=== PATIENT | female | born 1980 | race Two or more races ===

== ENCOUNTER 2022-07-15 07:08 | Emergency (ER) | payer OTHER, MEDICAID, SELFPAY ==
[2022-07-15 07:18] VITALS: BP 121/73; PULSE 76; RESP 17; TEMP 36.5; O2SAT 100; BMI 29.7
[2022-07-15 07:30] VITALS: BP 120/66; PULSE 74; O2SAT 100
--- NOTE | 2022-07-15 07:39 | ED_ITS ---
HPI - Female Genitourinary General: Chief complaint: Urogenital-Female Stated complaint: Endo Pain Time Seen by Provider: 07/15/22 07:09 Source: patient Mode of arrival: ambulatory History of Present Illness: 42-year-old female presents emergency room with complaint of pelvic pain and cramping. She is set up to receive by gynecology. She had an ultrasound done 4 days ago that is reviewed is on her chart here at [facility] shows endocervical polyps as well as endometriosis. She is continuing to have pelvic pain and cramping, seems to be worsening. She denies any abnormal uterine bleeding. She has an appointment to see gynecology but it is not until August. MD elicited complaint: pelvic pain Pertinent past history: other (Endometriosis) Onset (ago): week(s) Severity: moderate Female Urogenital Radiation: Non-Radiating Quality of pain: cramping Consistency: constant Vaginal discharge: none Vaginal bleeding: none Urinary symptoms: Difficulty Urinating, Dysuria and Flank Pain Exacerbating factors: none Relieving factors: none Associated symptoms: Deny abdominal pain, short of breath, fevers/chills, headache(s), nausea, rash, seizures, syncope, vaginal bleeding, vaginal discharge or weakness Treatment prior to arrival: none Patient : No Review of Systems Const: Denies: fever(s), chills, body aches, change in appetite, fatigue or malaise ENMT: Denies: throat pain, ear or mastoid pain, nasal discharge or nasal congestion Card: Denies: chest pain, palpitations, irregular heart rhythm or syncope Resp: Denies: dyspnea, productive cough or non-productive cough GI: Denies: abdominal pain or nausea : Denies: flank pain, difficulty voiding, dysuria, urinary frequency, urinary urgency or vaginal discharge Skin/Breast: Denies: rash or pruritus Neuro: Denies: headache(s) PFSH ED PFSH: Medical History (Updated 07/23/22 @ 00:01 by ) Psychiatric care Surgical History (Updated 07/15/22 @ 07:54 by Judah Ramos DO) Previous section Social History (Updated 07/15/22 @ 07:54 by Judah Ramos DO) Smoking and tobacco status: never smoked Alcohol intake: never Physical Exam Const: GENERAL APPEARANCE: cooperative and comfortable ORIENTATION/CONSCIOUSNESS: Yes awake, Yes oriented to person, Yes oriented to place and Yes oriented to time HENMT: COMMON NORMALS: normocephalic, atraumatic and hearing grossly normal bilaterally HEAD & SCALP: normocephalic and atraumatic Resp: COMMON NORMALS: normal respiratory effort, No retractions, No use of accessory muscles and clear to auscultation bilaterally AUSCULTATION: clear to auscultation bilaterally Cardio: COMMON NORMALS: regular rate, regular rhythm and No murmurs present (Cardio) RATE: regular rate RHYTHM: regular rhythm GI: COMMON NORMALS: Soft to palpation and No hepatosplenomegaly present AUSCULTATION: Yes normoactive bowel sounds PALPATION: Yes Soft to palpation, No Tenderness to palpation present (GI), No Guarding due to palpation present (GI) and Yes No hepatosplenomegaly present : SPECULUM EXAM - VAGINA: No vaginal bleeding OB/EXTERNAL & SPECULUM: No vaginal bleeding Extremity: COMMON NORMALS: normal to inspection, capillary refill normal, no clubbing, cyanosis or edema, no calf tenderness and no pedal edema Neuro: SENSORIUM/ORIENTATION: Yes oriented to person, Yes oriented to place and Yes oriented to time Skin: COMMON NORMALS: no rashes or lesions noted GENERAL SKIN EXAM: no r ashes or lesions noted Course Vital Signs: Vital signs: Vital Signs Temperature 97.7 F 07/15/22 07:18 Pulse Rate 78 07/15/22 09:39 Respiratory Rate 16 07/15/22 09:39 Blood Pressure 122/65 07/15/22 09:39 Pulse Oximetry 98 07/15/22 09:39 Oxygen Delivery Me thod 07/15/22 07:18 MDM - Female Medical Decision Making Labs and imaging reviewed with the patient. Imaging done previously was reviewed. She is feeling somewhat better at this point we will discharge her home set up to see gynecology. Medications given for relief of ongoing symptoms, diclofenac for routine use tramadol for breakthrough pain. She has an appointment that her primary care doctor scheduled with gynecology recommend that she keep that. If has significant worsening follow-up with her primary care doctor. Medical Records I reviewed the patient's medical records. Lab Data I reviewed the patient's lab results. : 07/15/22 07:58 07/15/22 07:58 Laboratory Results WBC 10.0 10^3/uL (4.0-10.0) 07/15/22 07:58 RBC 4.71 10^6/uL (4.1-5.3) 07/15/22 07:58 Hgb 13.7 g/dL (11.5-15.3) 07/15/22 07:58 Hct 42.6 % (37.0-47.0) 07/15/22 07:58 MCV 90.4 fl (81-99) 07/15/22 07:58 MCH 29.1 pg (28.0-34.0) 07/15/22 07:58 MCHC 32.2 g/dL (30.0-36.0) 07/15/22 07:58 RDW 13.1 % (12.1-15.1) 07/15/22 07:58 Plt Count 203 10^3/cmm (130-400) 07/15/22 07:58 MPV 12.8 fL (7.4-10.4) H 07/15/22 07:58 Neut % (Auto) 64.7 % 07/15/22 07:58 Lymph % (Auto) 27.7 % 07/15/22 07:58 [place] % (Auto) 6.4 % 07/15/22 07:58 Eos % (Auto) 0.5 % 07/15/22 07:58 Baso % (Auto) 0.2 % 07/15/22 07:58 Neut # (Auto) 6.46 10^3/uL (1.8-7.7) 07/15/22 07:58 Lymph # (Auto) 2.8 10^3/uL (0.8-4.8) 07/15/22 07:58 [place] # (Auto) 0.6 10^3/uL (0.2-0.9) 07/15/22 07:58 Eos # (Auto) 0.1 10^3/uL (0.0-0.8) 07/15/22 07:58 Baso # (Auto) 0.0 10^3/uL (0.0-0.1) 07/15/22 07:58 Nucleated RBC % (auto) 0 % 07/15/22 07:58 Nucleated RBCs # 0.0 /100WBC 07/15/22 07:58 Sodium 139 mmol/L (136-145) 07/15/22 07:58 Potassium 3.9 mmol/L (3.5-5.1) 07/15/22 07:58 Chloride 104 mmol/L (98-107) 07/15/22 07:58 Carbon Dioxide 24 mmol/L (22-29) 07/15/22 07:58 Anion Gap 14.9 (5-19) 07/15/22 07:58 BUN 9 mg/dL (6-20) 07/15/22 07:58 Creatinine 0.9 mg/dL (0.5-0.9) 07/15/22 07:58 GFR Calculation 68.0 mL/min (90-130) L 07/15/22 07:58 Glucose 86 mg/dL (65-115) 07/15/22 07:58 Calculated Osmolality 286 mOsm/kg (285-295) 07/15/22 07:58 Calcium 9.3 mg/dL (8.5-10.5) 07/15/22 07:58 Total Bilirubin 0.3 mg/dL (0.15-1.2) 07/15/22 07:58 AST 10 U/L (0-32) 07/15/22 07:58 ALT 10 U/L (0-33) 07/15/22 07:58 Alkaline Phosphatase 77 U/L (35-105) 07/15/22 07:58 Total Protein 6.9 g/dL (6.6-8.7) 07/15/22 07:58 Albumin 4.3 g/dL (3.5-5.2) 07/15/22 07:58 Globulin 2.6 g/dL (1.3-4.6) 07/15/22 07:58 Discharge Plan Discharge Patient Disposition: Home Clinical Impression: Endometriosis, Cervical polyp Condition: Stable Prescriptions: New diclofenac sodium 75 mg tablet,delayed release (DR/EC) 75 mg PO Q12H PRN (Reason: pain) Qty: 60 0RF tramadol 50 mg tablet 50 mg PO Q6H PRN (Reason: pain) Qty: 14 0RF Discharge Orders: Discharge ED (Routine); Ordered 07/15/22 Ordered By: Judah Ramos Referrals: Patrick Epperson MD [Primary Care Provider] - Discharge Diet: Usual diet Discharge Activity: Increase activity as tolerated Patient Instructions: Opioid Safety, Pain Management Activity Restrictions/Additional Instructions: Use medications as above for relief of cramping discomfort in the pelvis. Use diclofenac initially if that is not adequate use the tramadol. Keep the a ppointment that Dr. Strickland is scheduled for you with gynecology. If there is significant worsening of symptoms follow-up with your primary care doctor. Coding Level of Care Code ED Sample Hand for Gabrielle Fwd Exam Comprehensive
[2022-07-15 08:00] VITALS: BP 128/69; PULSE 67; O2SAT 98
[2022-07-15] MEDS: ketorolac 30 mg/mL INJ IVP (08:06)
[2022-07-15 08:10] VITALS: RESP 16; O2SAT 98
[2022-07-15] MEDS: morphine 4 mg/mL SDV 1 mL IVP (08:10)
[2022-07-15 08:30] VITALS: BP 124/77; PULSE 78; RESP 16; O2SAT 97
[2022-07-15 08:59] LABS: Basophils % 0.2 %; Eosinophils # 0.1 10^3/uL (0.0-0.8); Eosinophils % 0.5 %; Hematocrit 42.6 % (37.0-47.0); Hemoglobin 13.7 g/dL (11.5-15.3); Lymphocytes # 2.8 10^3/uL (0.8-4.8); Lymphocytes % 27.7 %; Mean Corpuscular HGB Conc 32.2 g/dL (30.0-36.0); Mean Corpuscular Hemoglobin 29.1 pg (28.0-34.0); Mean Corpuscular Volume 90.4 fl (81-99); Mean Platelet Volume 12.8 fL (7.4-10.4); Monocytes # 0.6 10^3/uL (0.2-0.9); Monocytes % 6.4 %; Neutrophils # 6.46 10^3/uL (1.8-7.7); Neutrophils % 64.7 %; Nucleated Red Blood Cells % 0 %; Platelet Count 203 10^3/cmm (130-400); Red Blood Count 4.71 10^6/uL (4.1-5.3); Red Cell Distribution Width 13.1 % (12.1-15.1)
[2022-07-15 09:12] LABS: Alanine Aminotransferase 10 U/L (0-33); Albumin Level 4.3 g/dL (3.5-5.2); Alkaline Phosphatase 77 U/L (35-105); Anion Gap 14.9 (5-19); Aspartate Amino Transferase 10 U/L (0-32); Blood Urea Nitrogen 9 mg/dL (6-20); Calcium 9.3 mg/dL (8.5-10.5); Carbon Dioxide 24 mmol/L (22-29); Chloride 104 mmol/L (98-107); Globulin 2.6 g/dL (1.3-4.6); Glucose 86 mg/dL (65-115); Osmolality Calculated 286 mOsm/kg (285-295); Potassium 3.9 mmol/L (3.5-5.1); Sodium 139 mmol/L (136-145); Total Bilirubin 0.3 mg/dL (0.15-1.2); Total Protein 6.9 g/dL (6.6-8.7)
[2022-07-15 09:39] VITALS: BP 122/65; PULSE 78; RESP 16; O2SAT 98
== END 2022-07-15 09:40 | disposition home or self-care (01) ==
PROVIDERS: Emergency Provider Family Medicine; PCP Family Medicine
DX: N80.9 Endometriosis, unspecified (principal); N84.1 Polyp of cervix uteri
CPT/HCPCS: 80053; 85025; 96374; 96375; 99284; J1885; J2270

== ENCOUNTER → 2022-11-07 10:40 | Outpatient (BNVA) | payer OTHER, MEDICAID, SELFPAY | PROVIDERS: PCP Family Medicine; Visit Provider Obstetrics & Gynecology | DX: Z01.818 Encounter for other preprocedural examination (principal) | CPT/HCPCS: 81025 ==

== ENCOUNTER 2022-11-15 14:53 | Inpatient (IN) | payer OTHER, MEDICAID, SELFPAY ==
[2022-11-14 09:46] VITALS: BMI 29.1
[2022-11-14 09:59] LABS: Add Urine Microscopic? NO; Charge for UA Resulting for Rev
[2022-11-14 10:02] LABS: Blood Urine Neg (Negative); Glucose Urine UA Norm (Normal); Ketones Urine Negative (Negative); Protein Urine Neg (Negative); Urine Appearance Clear (CLEAR); Urine Color Yellow (Yellow); pH Urine 7 (5-7)
[2022-11-14 10:03] LABS: Bilirubin Urine Neg (Negative); Leukocyte Esterase Urine Negative (Negative); Nitrate Urine Negative (Negative); Urobilinogen Urine Norm (Negative)
[2022-11-14 10:05] LABS: OR HCG Qualitative Urine Negative (Negative)
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
[2022-11-14 10:12] LABS: Basophils % 0.2 %; Eosinophils % 0.1 %; Hematocrit 42.7 % (37.0-47.0); Hemoglobin 13.4 g/dL (11.5-15.3); Lymphocytes # 3.5 10^3/uL (0.8-4.8); Lymphocytes % 21.1 %; Mean Corpuscular HGB Conc 31.4 g/dL (30.0-36.0); Mean Corpuscular Hemoglobin 28.6 pg (28.0-34.0); Mean Platelet Volume 12.2 fL (7.4-10.4); Monocytes # 0.9 10^3/uL (0.2-0.9); Monocytes % 5.3 %; Neutrophils # 12.02 10^3/uL (1.8-7.7); Nucleated Red Blood Cells % 0 %; Platelet Count 216 10^3/cmm (130-400); Red Blood Count 4.69 10^6/uL (4.1-5.3); Red Cell Distribution Width 13.9 % (12.1-15.1); White Blood Count 16.5 10^3/uL (4.0-10.0)
[2022-11-15] VITALS (21 sets, daily range): BP systolic 108–161; BP diastolic 66–99; PULSE 66–96; RESP 12–20; TEMP 36.4–36.9; O2SAT 96–100
[2022-11-15] MEDS: sodium chloride 0.9% 500 ML IV (09:50)
[2022-11-15] MEDS: scopolamine 1.5 Patch 1 PATCH TRANSDERMA (09:52)
[2022-11-15 10:26] LABS: Alanine Aminotransferase 10 U/L (0-33); Alkaline Phosphatase 65 U/L (35-105); Anion Gap 14.9 (5-19); Aspartate Amino Transferase 12 U/L (0-32); Blood Urea Nitrogen 10 mg/dL (6-20); Carbon Dioxide 21 mmol/L (22-29); Chloride 101 mmol/L (98-107); Globulin 2.9 g/dL (1.3-4.6); Glomerular Filtration Rate 77.9 mL/min (90-130); Glucose 79 mg/dL (65-115); Osmolality Calculated 274 mOsm/kg (285-295); Potassium 3.9 mmol/L (3.5-5.1); Sodium 133 mmol/L (136-145); Total Bilirubin 0.3 mg/dL (0.15-1.2); Total Protein 6.9 g/dL (6.6-8.7)
[2022-11-15] MEDS: sodium chloride 0.9% 1,000 ML 30 ML IV (10:55)
--- NOTE | 2022-11-15 11:00 | W.PM.OPSUD ---
Surgery/Procedure H&P Update DATE OF PROCEDURE: November 15, 2022 DATE H&P PERFORMED: 11/13/22 H&P UPDATE INFORMATION: I have reviewed H&P completed within last 30 days, I have examined patient prior to procedure and No changes to prior documentation PREOP DIAGNOSIS: Endometriosis, pelvic pain, endometrial polyp PLANNED PROCEDURE: Operation Date: 11/15/22 11:05 Proposed Procedures p Total abdominal hysterectomy, bilateral salpingecto-oophorectomy 89577,N80.9,R10.2,N84.0(Not Applicable) - Chandrakant Jacob MD s Salpingo Oophorectomy (Open)(Bilateral) - Chandrakant Jacob MD
--- NOTE | 2022-11-15 11:07 | P.ANESUD_ITS ---
Pre-Anesthetic Update Pre-Anesthetic Assessment: Date of Surgery/Procedure: 11/15/22 Preop Nemo gnosis: Endometriosis, pelvic pain, endometrial polyp Proposed Procedure: Operation Date: 11/15/22 11:05 Proposed Procedures p Total abdominal hysterectomy, bilateral salpingecto-oophorectomy 77351,N80.9,R10.2,N84.0(Not Applicable) - Chandrakant Jacob MD s Salpingo Oophorectomy (Open)(Bilateral) - Chandrakant Jacob MD Any changes to Pre-Anesthetic Assessment?: No Last Intake: Intake Last Liquid Date 11/14/22 Last Liquid Time 22:00 Last Solid Date 11/14/22 Last Solid Time 22:00 Labs Last 48hrs: Short CBC 11/14/22 Range/Units 09:59 WBC 16.5 H (4.0-10.0) 10^3/ uL Hgb 13.4 (11.5-15.3) g/dL Hct 42.7 (37.0-47.0) % MCV 91.0 (81-99) fl Plt Count 216 (130-400) 10^3/c mm Neut % (Auto) 73.0 % Neut # (Auto) 12.02 H (1.8-7.7) 10^3/u L BMP 11/14/22 11/15/22 09:59 09:45 Sodium Cancelled 133 L Potassium Cancelled 3.9 Chloride Cancelled 101 Carbon Dioxide Cancelled 21 L BUN Cancelled 10 Creatinine Cancelled 0.8 Glucose Cancelled 79 Calcium Cancelled 9.0 Liver Function 11/14/22 11/15/22 Range/Units 09:59 09:45 Total Bilirubin Cancelled 0.3 AST Cancelled 12 ALT Cancelled 10 Alkaline Phosphata se Cancelled 65 Albumin Cancelled 4.0 Urine 11/14/22 Range/Units 09:40 Urine Color Yellow (Yellow) Urine Appearance Clear (CLEAR) Urine pH 7 (5-7) Ur Specific [place]it y 1.010 (1.005-1.030) Urine Protein Neg (Negative) Urine Glucose (UA) Norm (Normal) Urine Ketones Negative (Negative) Urine Nitrate Negative (Negative) Urine Bilirubin Neg (Negative) Ur Leukocyte [place] Negative (Negative) Blood Bank 11/14/22 09:59 Blood Type O Positive Rho(D) Type Positive Antibody Screen Negative Vitals: Temperature 98.5 F 02/22/23 09:26 Temperature Source Temporal Artery S can 11/15/22 09:26 Pulse Rate 74 11/15/22 09:26 Pulse Rhythm 11/15/22 09:26 Pulse Strength 3+ Normal 11/15/22 09:26 Respiratory Rate 18 11/15/22 09:26 Blood Pressure 124/99 11/15/22 09:26 Blood Pressure Jodie n 107 11/15/22 09:26 Pulse Oximetry 100 11/15/22 09:26 Oxygen Delivery Me thod 11/15/22 09:26 Exam: Pre-Anes Outpt Exam: alert, oriented x 3, clear to auscultation bilaterally and regular rate & rhythm Cardiac Studies: No Data to Display
[2022-11-15] MEDS: ceFOXitin 2,000 MG in sodium chloride 0.9% (plus) 50 ML 100 MG IV (12:06)
--- NOTE | 2022-11-15 13:48 | P.OP_ITS ---
Operative Report Date of procedure: November 15, 2022 Pre-op diagnosis: Preop Diagnosis Endometriosis, pelvic pain, endometrial polyp Post-op diagnosis: Same as above Procedure done: Total abdominal hysterectomy Specimens removed/disposition: Uterus Left and right fallopian tube and ovaries Surgeon: Chandrakant Jacob MD Estimated blood loss (mL): 250 IV fluids (mL): 1,800 Urine output (mL): 300 Findings: None Procedure: The patient was taken to the operating room, and after adequate level of general anesthesia was achieved, the patient was placed in the Trendelenburg position, prepped and draped in the usual sterile fashion. Subsequently, a Pfannenstiel incision was made and the incision was taken down to the fascia. The fascia was opened up sharply. The fascia was extended to the length of the incision using devorah Ford scissors. At this time, the rectus muscles were dissected from the fascia superiorly and inferiorly to the symphysis pubis. The midline rectus muscles were opened sharply and extended superiorly and inferiorly. The peritoneum was visualized, grasped, opened sharply, and extended superiorly and inferiorly towards the bladder. The abdominal contents were packed superiorly away from the operative site using the lap packs. At this time, the pelvic organs were noted. The inferior and superior blades were placed in place on the Babak self-retaining retractor. Bowel was packed away from the operative site. The fundus of the uterus was then grasped with a triple-tooth tenaculum and retracted out of the pelvic cavity into the abdominal site. At this point, Mireya clamps were placed in both right and left adnexal regions. Subsequently, using the Enseal cautery unit, the round ligaments were grasped, cauterized, and dissected. The bladder flap was then formed and the bladder flap was pushed away down anteriorly over the lower uterine segment, pushed away from the operative site on both the right and left sides. Subsequently, the posterior leaf of the broad ligament was opened sharply and the Enseal instrument was then placed below the level of the ovary in both the right and left side, care being taken not to damage bowel or uterus and the infundibulopelvic ligament was then grasp ed, cauterized, and again dissected. Further dissection of the broad ligament was carried down posteriorly towards the uterine vessels. The bladder was pushed inferiorly down towards the vagina. Subsequently, the uterine vessels were then grasped again with the Enseal device, cauterized, and dissected. The cardinal ligaments were further grasped, dissected, and suture ligated, again with the Enseal machine. At that point, the Enseal machine instrument was stopped and straight Zeppelin clamps were used on the cardinal ligaments down towards the uterosacral ligaments. The cardinal ligaments were grasped, dissected with a scalpel and then ligated with transfixion sutures with #1 Vicryl suture down to the uterosacral ligaments. The uterosacral ligaments were grasped, dissected, and suture ligated again with #1 Vicryl suture and transfixion sutures. At that time, the bladder had been pushed over the vagina and at this time right-angle Zeppelin clamps were placed on the vagina at the level of the cervix, and using the Jenaro scissors, the cervix was dissected away from the vagina. Then the uterus with left and right fallopian tube and ovaries were sent to pathology. At this time, the vaginal cuff was then closed using interrupted sutures of #1 Vicryl suture from the midline to each lateral corner. After the good hemostasis had been achieved in the vaginal cuff, both the right and left adnexa was visualized and no more bleeding was noted. The cuff was intact with no bleeding noted. The bladder was visualized and no bleeding was noted. Seprafilm was then placed over the vaginal cuff. The Babak self-retaining retractor was removed as well as the anterior and inferior blades. The lap packs were removed, and at this time, general closure of the abdomen was carried out. The peritoneum was closed with a 2-0 Vicryl suture and continuous running suture. The fascia was closed using a #1 Vicryl suture from each corner to the midline. Subcutaneous tissue was cauterized. No bleeding was noted. The subcutaneous tissue was then reapproximated using plain sutures and interrupted sutures, and the skin was closed using Insorb absorbable subcuticular andressa. Exparel was infiltrated in the incision site for pain management. The patient tolerated the procedure well and was transferred to the recovery room in excellent condition. The patient returned to the floor for recovery.
[2022-11-15] MEDS: fentaNYL 50 mcg/mL INJ 2mL IVP ×2 (13:52→15:23)
[2022-11-15] MEDS: HYDROmorphone 1 mg/mL INJ 1 mL 0.5 MG IVP (14:03)
[2022-11-15] MEDS: ondansetron 2 mg/ML SDV 2 mL 4 MG IVP ×2 (14:08→22:37)
[2022-11-15] MEDS: HYDROcodone-acetaminophen 5-325 mg Tablet PO ×2 (15:00→20:45)
[2022-11-15] MEDS: dextrose 5%-lactated ringers 1,000 ML 125 ML IV ×2 (15:02→22:49)
[2022-11-15] MEDS: acetaminophen 1,000 MG/100 ML PIGGYBACK 400 MG IV (15:30)
[2022-11-15] MEDS: docusate sodium 100 mg Capsule PO (17:12)
[2022-11-15] MEDS: ketorolac 30 mg/mL INJ IVP ×2 (17:12→22:38)
[2022-11-15] MEDS: simethicone 80 mg Chew PO (20:45)
[2022-11-16] MEDS: HYDROcodone-acetaminophen 5-325 mg Tablet PO ×3 (02:49→21:34)
[2022-11-16] MEDS: simethicone 80 mg Chew PO ×3 (05:22→20:50)
[2022-11-16] MEDS: ketorolac 30 mg/mL INJ IVP (05:22)
[2022-11-16 05:30] VITALS: BP 132/79; PULSE 89; RESP 18; TEMP 36.8; O2SAT 97
[2022-11-16 06:09] LABS: Hematocrit 36.6 % (37.0-47.0); Hemoglobin 11.6 g/dL (11.5-15.3); Mean Corpuscular HGB Conc 31.7 g/dL (30.0-36.0); Mean Corpuscular Hemoglobin 28.4 pg (28.0-34.0); Mean Corpuscular Volume 89.7 fl (81-99); Mean Platelet Volume 12.1 fL (7.4-10.4); Platelet Count 179 10^3/cmm (130-400); Red Blood Count 4.08 10^6/uL (4.1-5.3); Red Cell Distribution Width 13.7 % (12.1-15.1); White Blood Count 17.5 10^3/uL (4.0-10.0)
--- NOTE | 2022-11-16 08:28 | P.PN_ITS ---
Subjective Subjective: Mrs. Chinchilla 42-year-old female is status post total abdominal hysterectomy postoperative day 1. Refers feeling good Vitals/I&O/Wt Last Vital Signs Temp 98.2 F 11/16/22 05:30 Pulse 89 11/16/22 05:30 Resp 18 11/16/22 05:30 BP 132/79 11/16/22 05:30 Pulse Ox 97 11/16/22 05:30 O2 Del Method 11/16/22 05:30 O2 Flow Rate 6 11/15/22 13:46 11/15/22 11/16/22 11/16/22 22:59 06:59 14:59 Intake Total 1072.917 / 2432.917 816.667 / 3249.584 Output Total 700 / 1550 1650 / 3200 200 / 200 Balance 372.917 / 882.917 -833.333 / 49.584 -200 / -200 Weight last 48 hrs Weight 84.368 kg Physical Exam Narrative: GA: Alert and oriented ?3. HEENT: WNL. Heart: Regular rate and rhythm. Lungs: Clear to auscultation bilaterally. Abdomen: Bowel sounds present, nontender, minimal tenderness, incision clean and dry, no redness, pain or edema. 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 Extremities: No edema, no cyanosis, no calves pain. Urinary Catheter Management: [place]: Cath Placed During This Visit: yes, but has since been removed by the nurse Reason for Continuing Indwelling Catheter: Decision to DC Catheter Urinary Catheter Date of Insertion: 11/15/22 Urinary Catheter Time of Insertion: 12:15 Date Urinary Catheter Removed: 11/16/22 Time Urinary Catheter Discontinued: 05:30 Data 11/16/22 05:51 11/15/22 09:45 A&P Assessment and plan (1) Status post abdominal hysterectomy and salpingo-oophorectomy: Mrs. Chinchilla 42-year-old female is status post total abdominal hysterectomy postoperative day 1. She is afebrile and hemodynamically stable. Pain well under control. Overnight observation uneventful. Tolerating diet well. Ambulating without difficulty. Passing flatus. Plan Continue postop observation Attestations Medical Necessity Statement*: In my professional opinion per admitting diagnosis Coding Level of Care Code Acute Code for Chg Fwd Diagnoses Status post abdominal hysterectomy and salpingo-oophorectomy
[2022-11-16] MEDS: docusate sodium 100 mg Capsule PO ×2 (09:25→18:30)
[2022-11-16 09:37] VITALS: BP 132/86; PULSE 91; RESP 16; TEMP 36.8; O2SAT 97
[2022-11-16] MEDS: ibuprofen 800 mg tablet PO (14:20)
[2022-11-16 18:30] VITALS: BP 146/83; PULSE 94; RESP 16; TEMP 37.2; O2SAT 98
[2022-11-16 21:34] VITALS: BP 154/82; PULSE 89; RESP 16; TEMP 36.8; O2SAT 97
[2022-11-17] MEDS: ibuprofen 800 mg tablet PO ×2 (00:13→06:26)
[2022-11-17 05:30] VITALS: BP 136/84; PULSE 89; RESP 18; TEMP 37; O2SAT 96
[2022-11-17] MEDS: simethicone 80 mg Chew PO (06:51)
--- NOTE | 2022-11-17 07:44 | PM.OBGYDC ---
Discharge Providers SCANNER SUPERVISOR Date of Admission: 11/15/22 14:53 Date of Discharge: 11/17/22 Attending Provider at Admission: Chandrakant Jacob MD Attending Provider at Discharge: Chandrakant Jacob MD Primary Care Provider: Patrick Epperson MD Diagnoses at Discharge Discharge Diagnosis (1) Status post abdominal hysterectomy and salpingo-oophorectomy: Status: Acute Reason for Visit Reason for Visit: endometriosis, unspecified Hospital Course Hospital Course Mrs. Chinchilla 42-year-old female admitted for planned post total abdominal hysterectomy with bilateral salpingo-oophorectomy. The procedures were performed without complication. She is afebrile and hemodynamically stable postoperative day 2. Tolerating diet well. Ambulating without difficulty. Pain well controlled. Spotting bleeding, she refers hardly any. Postop observation has been uneventful. She was counseled regarding pelvic rest for 6 weeks (no sex, no tampons, no vaginal douches). Return to the emergency room if any fever, increased bleeding or pain. Physical Exam Narrative: GA: Alert and oriented ?3. HEENT: WNL. Heart: Regular rate and rhythm. Lungs: Clear to auscultation bilaterally. Abdomen: Bowel sounds present, nontender, minimal tenderness, incision clean and dry, no redness, pain or edema. AUTOMATIC PATTERN EDGER: No bleeding. Extremities: No edema, no cyanosis, no calves pain. Urinary Catheter Management: [place]: Cath Placed During This Visit: yes, but has since been removed by the nurse Reason for Continuing Indwelling Catheter: Decision to DC Catheter Urinary Catheter Date of Insertion: 11/15/22 Urinary Catheter Time of Insertion: 12:15 Date Urinary Catheter Removed: 11/16/22 Time Urinary Catheter Discontinued: 05:30 History History History 3 Term 3 0 Miscarriages/Ectopic 0 Living Children 4 Discharge Data Studies Completed and Pending Pending at discharge Category Date Time Status Pathology: Surgical [PTH] Routine Pth 11/15/22 13:24 Received Laboratory Results WBC 17.5 10^3/uL (4.0-10.0) H 11/16/22 05:51 RBC 4.08 10^6/uL (4.1-5.3) L 11/16/22 05:51 Hgb 11.6 g/dL (11.5-15.3) 11/16/22 05:51 Hct 36.6 % (37.0-47.0) L 11/16/22 05:51 MCV 89.7 fl (81-99) 11/16/22 05:51 MCH 28.4 pg (28.0-34.0) 11/16/22 05:51 MCHC 31.7 g/dL (30.0-36.0) 11/16/22 05:51 RDW 13.7 % (12.1-15.1) 11/16/22 05:51 Plt Count 179 10^3/cmm (130-400) 11/16/22 05:51 MPV 12.1 fL (7.4-10.4) H 11/16/22 05:51 Neut % (Auto) 73.0 % 11/14/22 09:59 Lymph % (Auto) 21.1 % 11/14/22 09:59 [place] % (Auto) 5.3 % 11/14/22 09:59 Eos % (Auto) 0.1 % 11/14/22 09:59 Baso % (Auto) 0.2 % 11/14/22 09:59 Neut # (Auto) 12.02 10^3/uL (1.8-7.7) H 11/14/22 09:59 Lymph # (Auto) 3.5 10^3/uL (0.8-4.8) 11/14/22 09:59 [place] # (Auto) 0.9 10^3/uL (0.2-0.9) 11/14/22 09:59 Eos # (Auto) 0.0 10^3/uL (0.0-0.8) 11/14/22 09:59 Baso # (Auto) 0.0 10^3/uL (0.0-0.1) 11/14/22 09:59 Nucleated RBC % (auto) 0 % 11/14/22 09:59 Nucleated RBCs # 0.0 /100WBC 11/14/22 09:59 Sodium 133 mmol/L (136-145) L 11/15/22 09:45 Potassium 3.9 mmol/L (3.5-5.1) 11/15/22 09:45 Chloride 101 mmol/L (98-107) 11/15/22 09:45 Carbon Dioxide 21 mmol/L (22-29) L 11/15/22 09:45 Anion Gap 14.9 (5-19) 11/15/22 09:45 BUN 10 mg/dL (6-20) 11/15/22 09:45 Creatinine 0.8 mg/dL (0.5-0.9) 11/15/22 09:45 GFR Calculation 77.9 mL/min (90-130) L 11/15/22 09:45 Glucose 79 mg/dL (65-115) 11/15/22 09:45 Calculated Osmolality 274 mOsm/kg (285-295) L 11/15/22 09:45 Calcium 9.0 mg/dL (8.5-10.5) 11/15/22 09:45 Total Bilirubin 0.3 mg/dL (0.15-1.2) 11/15/22 09:45 AST 12 U/L (0-32) 11/15/22 09:45 ALT 10 U/L (0-33) 11/15/22 09:45 Alkaline Phosphatase 65 U/L (35-105) 11/15/22 09:45 Total Protein 6.9 g/dL (6.6-8.7) 11/15/22 09:45 Albumin 4.0 g/dL (3.5-5.2) 11/15/22 09:45 Globulin 2.9 g/dL (1.3-4.6) 11/15/22 09:45 Urine Color Yellow (Yellow) 11/14/22 09:40 Urine Appearance Clear (CLEAR) 11/14/22 09:40 Urine pH 7 (5-7) 11/14/22 09:40 Ur Specific [place] 1.010 (1.005-1.030) 11/14/22 09:40 Urine Protein Neg (Negative) 11/14/22 09:40 Urine Glucose (UA) Norm (Normal) 11/14/22 09:40 Urine Ketones Negative (Negative) 11/14/22 09:40 Urine Blood Neg (Negative) 11/14/22 09:40 Urine Nitrate Negative (Negative) 11/14/22 09:40 Urine Bilirubin Neg (Negative) 11/14/22 09:40 Urine Urobilinogen Norm mg/dL (Negative) 11/14/22 09:40 Ur Leukocyte Esterase Negative (Negative) 11/14/22 09:40 Urine HCG, Qual Negative (Negative) 11/14/22 09:40 Blood Type O Positive 11/14/22 09:59 Rho(D) Type Positive 11/14/22 09:59 Antibody Screen Negative 11/14/22 09:59 Vitals Last Vital Signs Temp 98.6 F 11/17/22 05:30 Pulse 89 11/17/22 05:30 Resp 18 11/17/22 05:30 BP 136/84 11/17/22 05:30 Pulse Ox 96 11/17/22 05:30 O2 Del Method 11/17/22 05:30 O2 Flow Rate 6 11/15/22 13:46 Discharge Plan Discharge Patient Disposition: Home Condition: Stable Prescriptions: New hydrocodone-acetaminophen 5-325 mg tablet 1 tab PO Q4H PRN (Reason: pain) Qty: 30 0RF acetaminophen 325 mg capsule 325 mg PO Q4H PRN (Reason: fever or pain) Qty: 60 0RF docusate sodium [Colace] 100 mg capsule 100 mg PO BID Qty: 60 0RF ibuprofen 800 mg tablet 800 mg PO TID PRN (Reason: pain) Qty: 60 0RF Continued ibuprofen 600 mg Tablet 600 mg PO Q8H PRN (Reason: Pain (Scale Score 4-6)) Discharge Orders: Discharge Order (Routine); Ordered 11/17/22 Ordered By: Chandrakant Jacob Referrals: Chandrakant Jacob MD [Physician] - 11/29/22 10:00 am (2 week post-op: 11/29/22 @10:00 6 week post-op: 12/26/22 @11:00) Discharge Diet: Usual diet Discharge Activity: Limit activity as instructed Patient Instructions: Hydrocodone/Acetaminophen (By mouth) (Vicodin, [place], Lortab), Salpingo-Oophorectomy (DC), Hysterectomy (DC), OB Abdominal Surgery - [facility], OB Discharge Report, OB Food/Drug Interaction Guide, Opioid Safety, Hysterectomy (GEN), Salpingo-Oophorectomy (GEN) Activity Restrictions/Additional Instructions: 1. Please call [facility] on next working day to make your post-operative appointment in 2 weeks. 2. Please stay home until you come back to the clinic on first post-operative check up. 3. Please follow instructions on your medications CAREFULLY. 4. If you have abdominal incision, do not cover it unless dressing is necessary because of drainage. OK to shower, but avoid bath. Leave steri-strips until they fall off. If they are still on one week after surgery, you may remove them. 5. If you had vaginal surgery or vaginal repair, Dr. Jacob may instruct you to take SITZ bath. 6. Yellow, blood tinged odorous vaginal discharge is usually normal after hysterectomy or vaginal surgeries. 7. No sexual intercourse, tampons, or douches until you are completely released from the post-operative care. 8. Avoid constipation by eating right and maybe using some Metamucil or Milk of Magnesia. 9. All prescription refills are given during the working hours. Please do no wait till it runs out. Call the clinic at [phone] before your medication runs out. The clinic will get in touch with your doctor to prescribe medications if necessary. 10. Please remain within 40 mile radius from our hospital because emergencies do happen now and then during the post-operative period. 11. If you have stairs at home, take one step at a time slowly and minimize the number of trips. It helps to stay in one floor for the next few days. No lifting except what you can lift by one hand until you are released from the post-operative care. 12. Driving is discouraged until you are well healed. It may be 3-4 weeks before you feel strong enough to drive. You should be able to turn and look through the rear window without pain and you should be able to push the brake pedal very hard without pain before you drive. No fast rules, but SAFETY should be your primary concern. DO NOT drive if you are on sedating medications such as narcotics. 13. Call the clinic (during working hours) to make urgent appointment or go to the Emergency room, if any of the following occurs: i. Vaginal bleeding becomes heavy, more than a period. ii. Incision becomes red and sore, or drains pus. iii. Your temperature is over 100.4 or you have chill. iv. IV site becomes red and swollen (a little ``knot?? is usually OK) v. Persistent nausea and vomiting vi. Persistent constipation or diarrhea vii. Rash or allergic reaction to medications. Discharge Attestations SCANNER SUPERVISOR Time Spent in Discharge Care*: greater than 30 min Coding Level of Care Code Acute Code for Chg Fwd Diagnoses Status post abdominal hysterectomy and salpingo-oophorectomy
[2022-11-17 08:00] VITALS: BP 149/80; PULSE 80; RESP 17; TEMP 36.9
== END 2022-11-17 08:20 | disposition home or self-care (01) | DRG 743 ==
LOC: OR 14:53 → OBGYN 11-16 07:16
PROVIDERS: Admitting Provider Obstetrics & Gynecology; PCP Family Medicine; Visit Provider Obstetrics & Gynecology
PROC: 0UT90ZZ Resection of Uterus, Open Approach (ICD-10-PCS; CPT 58150; principal; 2022-11-15 10:55)
PROC: 0UT90ZZ Resection of Uterus, Open Approach (ICD-10-PCS; CPT 58720; 2022-11-15 10:55)
DX: N80.9 Endometriosis, unspecified (principal); N92.1 Excessive and frequent menstruation with irregular cycle; F32.A Depression, unspecified; F17.210 Nicotine dependence, cigarettes, uncomplicated; N84.0 Polyp of corpus uteri; G89.29 Other chronic pain
CPT/HCPCS: 36415; 51702; 80053; 81003; 84703; 85025; 85027; 86850; 86900; 88307; 96374; 96376; C9290; J0131; J0694; J1100; J1170; J1885; J2250; J2405; J2704; J2710; J3010; J3490; J7030; J7040; J7121

== ENCOUNTER 2023-04-29 12:47 | Emergency (ER) | payer OTHER, MEDICAID, SELFPAY ==
[2023-04-29 12:53] VITALS: BP 93/53; PULSE 108; RESP 16; TEMP 36.4; O2SAT 100; BMI 29.0
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
[2023-04-29] MEDS: diphenhydrAMINE 50 mg/mL SDV 1mL IVP (13:04)
[2023-04-29] MEDS: famotidine 20 mg/2 mL INJ 40 MG IVP (13:05)
[2023-04-29] MEDS: EPINEPHrine 1 mg/mL INJ 0.3 MG IM (13:06)
[2023-04-29] MEDS: methylPREDNISolone sod succ 125 MG in water for injection-sterile 2 ML 24 MG IVP (13:08)
[2023-04-29] MEDS: sodium chloride 0.9% 1,000 ML 999 ML IV (13:09)
[2023-04-29 13:14] VITALS: BP 110/67; PULSE 71; RESP 16; O2SAT 97
== END 2023-04-29 15:40 | disposition home or self-care (01) ==
PROVIDERS: Emergency Provider Emergency Medicine; PCP Family Medicine
DX: T63.441A Toxic effect of venom of bees, accidental (unintentional), initial encounter (principal); T78.2XXA Anaphylactic shock, unspecified, initial encounter
CPT/HCPCS: 96372; 96374; 96375; 99284; J0171; J1200; J2930; J3490; J7030

== ENCOUNTER 2023-09-26 20:00 | Outpatient (CLI) | payer OTHER, MEDICAID, SELFPAY | END 2023-09-26 20:01 | disposition home or self-care (01) | LOC: SLEEP 09-27 04:43 | PROVIDERS: PCP Family Medicine; Visit Provider Family Medicine | DX: G47.10 Hypersomnia, unspecified (principal); R06.83 Snoring; R53.83 Other fatigue | CPT/HCPCS: 95810 ==

== ENCOUNTER 2024-04-23 14:30 | Outpatient (CLI) | payer OTHER, MEDICAID, SELFPAY ==
--- NOTE | 2024-04-23 14:30 | MM_ITS ---
WS: [id number] BILATERAL 3D TOMOSYNTHESIS DIGITAL SCREENING MAMMOGRAPHY WITH CAD CLINICAL INFORMATION: Z12.31 - Encounter for screening mammogram for malignant ... HISTORY: Screening mammogram. No current complaints. COMPARISON: None. TECHNIQUE: Bilateral CC and MLO views. FINDINGS: Scattered fibroglandular densities bilaterally. No suspicious focal mass, asymmetry, calcifications, or architectural distortion. No evidence of malignancy. MM/[id number] IMPRESSION: BI-RADS: 1-Negative FOLLOW UP: 1 Year Follow-up Recommend return to annual screening mammography.
== END 2024-04-23 14:31 | disposition home or self-care (01) ==
PROVIDERS: PCP Family Medicine; Visit Provider Obstetrics & Gynecology
DX: Z12.31 Encounter for screening mammogram for malignant neoplasm of breast (principal)
CPT/HCPCS: 77063; 77067

== ENCOUNTER → 2024-12-02 08:51 | Outpatient (BNVA) | payer OTHER, MEDICAID, SELFPAY | PROVIDERS: PCP Family Medicine; Visit Provider Podiatrist Foot & Ankle Surgery | DX: M79.671 Pain in right foot (principal); M76.71 Peroneal tendinitis, right leg | CPT/HCPCS: 99203 ==